=== PATIENT | female | born 1990 | race Caucasian/White ===

== ENCOUNTER 2019-03-10 16:42 | Emergency (ER) | payer OTHER ==
[~2019-03-10] VITALS: Ht 177.8 cm; Wt 117.9 kg
[~2019-03-10 16:42] MED LIST: ALPR1 PO; BUPR100 PO; PRED20 PO
[2019-03-10] MEDS ORDERED: CYCL10 PO (18:13)
[2019-03-10] MEDS ORDERED: HYDR1TAB94 PO (18:13)
== END 2019-03-10 18:19 | disposition home or self-care (01) ==
LOC: ER 16:42
DX: S16.1XXA Strain of muscle, fascia and tendon at neck level, initial encounter (principal); S20.212A Contusion of left front wall of thorax, initial encounter; V43.52XA Car driver injured in collision with other type car in traffic accident, initial encounter; Z88.8 Allergy status to other drugs, medicaments and biological substances; Z79.899 Other long term (current) drug therapy
CPT/HCPCS: 71046; 72040; 99284-25; A9270-GY

== ENCOUNTER 2019-06-20 08:47 | Emergency (ER) | payer OTHER ==
[~2019-06-20] VITALS: Ht 177.8 cm; Wt 113.4 kg
[~2019-06-20 08:47] MED LIST changes: +CYCL10 PO; +HYDR1TAB94 PO
[2019-06-20] MEDS ORDERED: ALPR1 PO (09:05)
[2019-06-20 09:22] LABS: Source, Urine Clean Catch
[2019-06-20 09:34] LABS: BASOPHILS ABSOLUTE AUTO 0.03 K/mm3 (0.00-0.23); BASOPHILS PERCENT AUTO 1 % (0-2); EOSINOPHILS ABSOLUTE AUTO 0.06 K/mm3 (0.00-0.68); EOSINOPHILS PERCENT AUTO 1 % (0-6); Hematocrit 43.6 % (33.0-51.0); Hemoglobin 14.6 g/dL (11.5-16.0); IMMATURE GRAN ABSOLUTE AUTO 0.03 K/mm3 (0.00-0.10); IMMATURE GRAN PERCENT AUTO 1 % (0-1); LYMPHOCYTES ABSOLUTE AUTO 2.25 K/mm3 (0.84-5.20); LYMPHOCYTES PERCENT AUTO 36 % (21-46); MONOCYTES PERCENT AUTO 6 % (4-13); Mean Corpuscular HGB 30.9 pg (26.0-34.0); Mean Corpuscular HGB Conc 33.5 g/dL (31.5-36.5); Mean Corpuscular Volume 92 fL (80-100); NEUTROPHILS ABSOLUTE AUTO 3.46 K/mm3 (1.96-9.15); NEUTROPHILS PERCENT AUTO 56 % (41-73); Platelet Count 227 K/mm3 (150-400); RDW Coefficient Variation 14.2 % (11.7-14.2); RDW Standard Deviation 48.4 fL (35.1-46.3); Red Blood Cell Count 4.72 M/mm3 (3.80-5.20); White Blood Cell Count 6.23 K/mm3 (4.00-11.30)
[2019-06-20 09:40] LABS: Appearance, Urine Clear (Clear); Bilirubin, Urine Neg (Neg); Blood, Urine Neg (Neg); Color, Urine Yellow (P-Yellow); Glucose Qualitative, Urine Neg (Neg); Ketones, Urine Neg (Neg); Leukocyte Esterase, Urine Neg (Neg); Nitrite, Urine Neg (Neg); Protein, Urine Neg (Neg); Specific Gravity, Urine 1.015 (1.003-1.022); Urobilinogen, Urine NORM (Normal)
[2019-06-20 09:47] LABS: Salicylate <1.7 mg/dL (2.8-20.0); Thyroxine (T4) 5.8 ug/dL (4.8-13.9)
[2019-06-20 09:48] LABS: Ethanol (Alcohol), Blood, Med 15 mg/dL
[2019-06-20 09:53] LABS: Alanine Aminotransfer (ALT/SGP 117 U/L (12-78); Albumin, Blood 3.7 g/dL (3.4-5.0); Albumin/Globulin Ratio 0.9 (0.8-1.8); Alk Phos 76 U/L (50-136); Anion Gap 8 mmol/L (6-16); Aspartate Aminotrans (AST/SGOT 97 U/L (12-37); Bilirubin, Total 0.3 mg/dL (0.1-1.0); Blood Urea Nitrogen 10 mg/dL (8-24); Bun/Creatinine Ratio 13.2 (12.0-20.0); CO2, Blood 23 mmol/L (21-32); Calcium, Blood 8.4 mg/dL (8.5-10.1); Chloride, Blood 108 mmol/L (98-108); Creatinine, Blood 0.76 mg/dL (0.40-1.00); Globulin, Blood 3.9 g/dL (2.2-4.0); Glomerular Filtration Rate >60 (60-); Glucose, Blood 86 mg/dL (70-99); Potassium, Blood 3.8 mmol/L (3.5-5.5); Sodium, Blood 139 mmol/L (136-145); Total Protein, Blood 7.6 g/dL (6.4-8.2)
[2019-06-20 09:54] LABS: Acetaminophen, Random <2.0 ug/mL (10.0-30.0)
[2019-06-20 09:59] LABS: U Amphetamine Screen Not Detected; U Barbituate Screen Not Detected; U Benzodiazapine Screen DETECTED; U Buprenorphine Screen Not Detected; U Cannabinoids Screen DETECTED; U Cocaine Screen Not Detected; U Methadone Screen Not Detected; U Methamphetamine Screen Not Detected; U Opiates Screen Not Detected; U Oxycodone Screen Not Detected; U Phencyclidine Screen Not Detected; U Propoxyphene Screen Not Detected
[2019-06-20] MEDS ORDERED: CHLO10 PO (10:42)
[2019-06-20] MEDS ORDERED: Daily Multiple1 EACH PO (13:45)
== END 2019-06-20 11:06 | disposition home or self-care (01) ==
LOC: ER 08:47
PROVIDERS: Emergency Medicine
DX: F10.239 Alcohol dependence with withdrawal, unspecified (principal); Y90.0 Blood alcohol level of less than 20 mg/100 ml; Z88.8 Allergy status to other drugs, medicaments and biological substances; Z79.899 Other long term (current) drug therapy
CPT/HCPCS: 36415; 70450; 80053; 81003; 81025; 84436; 84443; 85025; 99284-25; G0480

== ENCOUNTER 2023-11-28 15:33 | Emergency (ER) | payer OTHER ==
[~2023-11-28] VITALS: Ht 177.8 cm; Wt 138.3 kg
[~2023-11-28 15:33] MED LIST changes: +CHLO10 PO; +Daily Multiple1 EACH PO
[2023-11-28 15:39] VITALS: BP 151/74
[2023-11-28] MEDS ORDERED: ALPR1 PO (16:33)
== END 2023-11-28 17:12 | disposition home or self-care (01) ==
LOC: ER 15:33
DX: F41.9 Anxiety disorder, unspecified (principal); Z88.8 Allergy status to other drugs, medicaments and biological substances; Z79.899 Other long term (current) drug therapy
CPT/HCPCS: 99283

== ENCOUNTER 2024-10-31 09:32 | Emergency (ER) | payer OTHER ==
[~2024-10-31] VITALS: Ht 167.6 cm; Wt 90.7 kg
[2024-10-31 11:19] VITALS: BP 125/97
[2024-10-31] MEDS ORDERED: DIAZ5 PO (12:58)
== END 2024-10-31 12:00 | disposition home or self-care (01) ==
LOC: ER 09:32
DX: F41.0 Panic disorder [episodic paroxysmal anxiety] (principal); F41.1 Generalized anxiety disorder; R03.0 Elevated blood-pressure reading, without diagnosis of hypertension; Z88.8 Allergy status to other drugs, medicaments and biological substances; Z79.899 Other long term (current) drug therapy
CPT/HCPCS: 99283